=== PATIENT | female | born 1985 | race Caucasian/White ===

== ENCOUNTER 2018-03-26 10:52 | Emergency (ER) | payer OTHER ==
[2018-03-26 10:59] VITALS: BP 128/80
--- NOTE | 2018-03-26 11:55 | UC ---
Abdominal Pain Female HPI - HPI Summary HPI Summary: 4 DAYS OF WORSENING RIGHT-SIDED ABDOMINAL PAIN AND LOW BACK PAIN WITH ASSOCIATED NAUSEA. PATIENT DENIES ANY URINARY SYMPTOMS. NO FEVER. MAYBE A BIT WORSE AFTER EATING BUT NOT FOR SURE. STILL HAS APPENDIX AND GB. - History of Current Complaint Chief Complaint: UCAbdominalPain Stated Complaint: ABDOMINAL PAIN Time Seen by Provider: 03/26/18 11:44 Hx Obtained From: Patient Hx Last Menstrual Period: 03/03/18 Onset/Duration: Gradual Onset, Lasting Days, Still Present Timing: Constant Severity Initially: Moderate Severity Currently: Severe Pain Intensity: 10 Pain Scale Used: 0-10 Numeric Location: Other - RIGHT SIDED Radiates: Yes Radiates to: Flank Character: Sharp Aggravating Factor(s): Movement, Deep Breaths Alleviating Factor(s): Nothing Associated Signs and Symptoms: Positive: Back Pain, Nausea. Negative: Fever, Blood in Stool, Urinary Symptoms Allergies/Adverse Reactions: Allergies Allergy/AdvReac Type Severity Reaction Status Date / Time No Known Allergies Allergy Verified 03/26/18 10:59 PMH/Surg Hx/FS Hx/Imm Hx Previously Healthy: Yes - Surgical History Surgical History: Yes Surgery Procedure, Year, and Place: carpal tunnel - Family History Family History: MOM - KIDNEY STONES - Social History Alcohol Use: None Substance Use Type: None Smoking Status (MU): Light Every Day Tobacco Smoker Amount Used/How Often: 1-2 daily Have You Smoked in the Last Year: No When Did the Patient Quit Smoking/Using Tobacco: 1 YEAR AGO Review of Systems Constitutional: Negative Respiratory: Negative Cardiovascular: Negative Gastrointestinal: Abdominal Pain, Nausea Genitourinary: Negative All Other Systems Reviewed And Are Negative: Yes Physical Exam Triage Information Reviewed: Yes Appearance: Well-Nourished, Pain Distress - MODERATE - PT HOLDING RIGHT SIDE, GRIMACING AND TEARFUL Vital Signs: Initial Vital Signs Temp 98 F 03/26/18 10:56 Pulse 90 03/26/18 10:56 Resp 20 03/26/18 10:56 BP 128/80 03/26/18 10:56 Pulse Ox 100 03/26/18 10:56 Laboratory Tests 03/26/18 03/26/18 11:44 11:53 POC Urine Color Yellow POC Urine Clarity Clear POC Urine pH 6.5 POC Ur Specif [place] <= 1.005 L POC Urine Protein Negative POC Ur Glucose (UA) Negative POC Urine Ketones Negative POC Urine Blood Negative POC Urine Nitrite Negative POC Urine Bilirubin Negative POC Urine Urobilinogen 0.2 POC U Leukocyte Esteras Negative POC Ur Test Negative Vital Signs Reviewed: Yes Eyes: Positive: Conjunctiva Clear ENT: Positive: Hearing grossly normal Neck: Positive: Supple Respiratory Exam: Normal Cardiovascular Exam: Normal Abdomen Description: Positive: Soft, CVA Tenderness (R), Other: - TTP DIFFUSELY OVER RIGHT SIDE. NO REBOUND OR RIGIDITY. NEG PSOAS. NEG OBTURATOR. Negative: CVA Tenderness (L), Distended, Guarding Bowel Sounds: Positive: Present Musculoskeletal: Positive: No Edema Neurological: Positive: Alert Psychological: Positive: Age Appropriate Behavior Skin: Negative: rashes Diagnostics - Radiology CT ABD/PELVIS W/O CONTRAST Xray Interpretation: Positive (See Comments) - 1. No CT evidence of urolithiasis. 2. Abnormal CT appearance the gallbladder. 3. Small amount of free fluid in the cul-de-sac Radiology Interpretation Completed By: Radiologist Abd Pain Female Course/Dx - Course Course Of Treatment: CT SCAN SHOWS ABNORMAL GALLBLADDER. NO KIDNEY STONE. GALLBLADDER ULTRASOUND RECOMMENDED BY RADIOLOGIST HOWEVER UNABLE TO GET IN THE UC IN A TIMELY MANNER. GIVEN THAT A POSITIVE ULTRASOUND WOULD STILL INDICATE TRANSFER TO THE ED PATIENT WILL GO DIRECTLY TO THE ED ALREADY FOR FURTHER EVALUATION OF HER ABDOMINAL DISCOMFORT. PT OFFERED TRANSPORT TO THE ED BY AMBULANCE BUT DECLINES. ADVISED THAT BY NOT TRAVELING IN A MONITORED SETTING SHE COULD BE RISKING WORSENING OF HER CONDITION THAT COULD POSE A THREAT TO HER LIFE, HEALTH AND MEDICAL SAFETY. SHE VERBALIZES UNDERSTANDING AND CONTINUES TO DECLINE AMBULANCE TRANSFER. - Differential Dx/Diagnosis Provider Diagnoses: ACUTE CHOLECYSTITIS - Physician Notification/Consults Discussed Care of Patient With: Cb Griffin - TO [facility] ED BY PRIVATE CAR Time Discussed With Above Provider: 13:00 Instructed by Provider To: MD Will See In ED Discharge - Sign-Out/Discharge Documenting (check all that apply): Patient Departure - Discharge Plan Condition: Stable [facility] Patient Education Materials: Cholecystitis (ED) Referrals: No Primary Care Phys,NOPCP [Primary Care Provider] - Additional Instructions: CONCERN FOR GALLBLADDER DISEASE. GO DIRECTLY TO THE [facility] ED FROM HERE FOR FURTHER EVALUATION. YOU HAVE DECLINED TRANSFER TO THE ED BY AMBULANCE. BE ADVISED THAT BY NOT TRAVELING IN A MONITORED SETTING YOU COULD BE RISKING WORSENING OF YOUR CONDITION THAT COULD POSE A THREAT TO YOUR LIFE, HEALTH AND MEDICAL SAFETY. - Billing Disposition and Condition Condition: STABLE Disposition: Trans Higher Lvl of Care Fac
--- NOTE | 2018-03-26 12:27 | RAD ---
INDICATION: Right flank pain COMPARISON: None TECHNIQUE: Noncontrast axial source images were acquired from the level hemidiaphragms to the symphysis pubis as part of CT imaging for renal stone. Lung bases: The lung bases are clear. Liver: The liver is normal in size. Noncontrast imaging shows no evidence of a hepatic mass or ductal dilatation. Gallbladder: The gallbladder is distended. There is intrinsic radiodensity of the gallbladder with mild wall prominence and pericholecystic fluid. This suggests gallbladder inflammation. Suggest gallbladder sonography Spleen: The spleen is normal in size. The noncontrast CT appearance is normal. Pancreas: Noncontrast imaging shows no pancreatic mass or ductal dilitation. Adrenal glands: No masses are identified. Kidneys/Bladder: There is no evidence of nephrolithiasis or CT evidence of hydronephrosis. Noncontrast imaging shows no evidence of a renal mass. The bladder is unremarkable.. Adenopathy: There is no evidence of intraperitoneal or retroperitoneal adenopathy. Evaluation is limited without oral contrast. Fluid collections: There is a small amount of free fluid in the cul-de-sac. Vessels: The aorta and iliac vessels are normal in caliber. There are no significant atherosclerotic changes. The IVC appears normal Pelvic organs: The uterus and adnexa appear normal GI tract: Evaluation of the bowel is limited without oral contrast. The stomach, small bowel, and lower GI tract appear grossly normal. There are no obstructive findings. The appendix is visualized and appears normal. Soft tissues: No soft tissue abnormalities of the extraperitoneal abdomen or pelvis are identified. Osseous structures: There are no acute osseous findings. IMPRESSION: 1. No CT evidence of urolithiasis. 2. Abnormal CT appearance the gallbladder. Suggest gallbladder sonography. 3. Small amount of free fluid in the cul-de-sac
== END 2018-03-26 13:05 | disposition short-term general hospital (02) ==
LOC: UCEAST 10:52
DX: R10.9 Unspecified abdominal pain (principal); K80.20 Calculus of gallbladder without cholecystitis without obstruction; F17.210 Nicotine dependence, cigarettes, uncomplicated
CPT/HCPCS: 74176; 81003; 84702; 99212; G0463

== ENCOUNTER 2018-03-26 13:27 | Inpatient (IN) | payer OTHER ==
[2018-03-26] MEDS ORDERED: NS 0.9% 1000 ML* 1,000 ML IV ONE (14:04)
--- NOTE | 2018-03-26 14:04 | ED ---
Abdominal Pain/Female - HPI Summary HPI Summary: This is scribe Jaskaran Benoit documenting for attending Jerome Kenny MD. Patient is a 32 y/o F w/ c/o RUQ pain. Pain onset was four days ago and was initially located at the lower back. However, it is now described to be at the RUQ. Pain is not noted to radiate. [facility] told and was informed that she has an irritated gallbladder. This prompted the ED visit. Patient denies D/V and constipation but notes some nausea. Pain is rated 8/10 in the room. On triage, eating is noted to aggravate Sx and nothing is reported to alleviated Sx. PMHx is denied. PSHx of carpel tunnel surgery is reported. Patient smokes 4-5 cigarettes a day, drinks once a week, and denies drug use. FHx of kidney stones and seizures is stated. LNMP was first week of February. Allergies and home medications are reviewed. - History of Current Complaint Chief Complaint: EDAbdPain Stated Complaint: ABD PAIN Time Seen by Provider: 03/26/18 13:55 Hx Obtained From: Patient Hx Last Menstrual Period: 03/03/18 Onset/Duration: Lasting Days - four days ago Timing: Constant Severity Currently: Severe Pain Intensity: 8 Pain Scale Used: 0-10 Numeric - 8/10 Location: Discrete At: RUQ - initially at lower back Radiates: No Aggravating Factor(s): Food Alleviating Factor(s): Nothing Associated Signs and Symptoms: Positive: Nausea. Negative: Constipation, Vomiting, Diarrhea Allergies/Adverse Reactions: Allergies Allergy/AdvReac Type Severity Reaction Status Date / Time No Known Allergies Allergy Verified 03/26/18 14:01 PMH/Surg Hx/FS Hx/Imm Hx Endocrine/Hematology History: Denies: Hx Diabetes, Hx Thyroid Disease Cardiovascular History: Denies: Hx Hypertension, Other Cardiovascular Problems/Disorders Respiratory History: Denies: Hx Asthma, Hx Chronic Obstructive Pulmonary Disease (COPD), Other Respiratory Problems/Disorders GI History: Denies: Hx Ulcer, Other GI Disorders Musculoskeletal History: Denies: Other Musculoskeletal History Sensory History: Reports: Hx Contacts or Glasses - GLASSES Denies: Hx Hearing Aid Opthamlomology History: Reports: Hx Contacts or Glasses - GLASSES - Surgical History Surgery Procedure, Year, and Place: carpal tunnel Hx Anesthesia Reactions: No Infectious Disease History: No Infectious Disease History: Denies: Hx Clostridium Difficile, Hx Hepatitis, Hx Human Immunodeficiency Virus (HIV), Hx of Known/Suspected MRSA, Hx Shingles, Hx Tuberculosis, Hx Known/ Suspected VRE, Hx Known/Suspected VRSA, History Other Infectious Disease, Traveled Outside the [place] in Last 30 Days - Family History Known Family History: Positive: Renal Disease - MOM - KIDNEY STONES, Seizure Disorder - seizures - Social History Alcohol Use: None Substance Use Type: Reports: None Smoking Status (MU): Light Every Day Tobacco Smoker Amount Used/How Often: 1-2 daily Have You Smoked in the Last Year: No Review of Systems Negative: Fever - on vitals, temperature is measured to be 99 F Positive: Abdominal Pain - RUQ, Nausea, Other - NEGATIVE: constipation . Negative: Vomiting, Diarrhea All Other Systems Reviewed And Are Negative: Yes Physical Exam - Summary Physical Exam Summary: VITAL SIGNS: Reviewed. GENERAL: Patient is a well-developed and obese female who is lying comfortable in the stretcher. Patient is not in any acute respiratory distress. HEAD AND FACE: Normocephalic and atraumatic. EYES: PERRLA, EOMI x 2, No injected conjunctiva. EARS: Hearing grossly intact. Ear canals and tympanic membranes are WNL. MOUTH: Oropharynx within normal limits. NECK: Supple, trachea is midline, no adenopathy, no JVD. CHEST: Symmetric, no tenderness at palpation LUNGS: Clear to auscultation bilaterally. No wheezing or crackles. CVS: RRR, S1 and S2 present, no murmurs or gallops appreciated. ABDOMEN: Soft, RUQ tenderness, mild guarding. No signs of distention. Positive bowel sounds. No rebound no and no masses palpated. No abdominal bruit or pulsations. EXTREMITIES: FROM in all major joints, no edema, no cyanosis or clubbing. NEURO: Alert and oriented x 3. No acute neurological deficits. Speech is normal. SKIN: Dry and warm Triage Information Reviewed: Yes Vital Signs On Initial Exam: Initial Vitals Temp Pulse Resp BP Pulse Ox 99 F 69 18 123/78 100 03/26/18 13:48 03/26/18 13:48 03/26/18 13:48 03/26/18 13:48 03/26/18 13:48 Vital Signs Reviewed: Yes Diagnostics - Vital Signs Vital Signs Temp Pulse Resp BP Pulse Ox 07/27/18 13:48 99 F 69 18 123/78 100 - Laboratory Result Diagrams: 03/26/18 14:14 03/26/18 14:14 Lab Statement: Any lab studies that have been ordered have been reviewed, and results considered in the medical decision making process. - Ultrasound No standard instances Ultrasound Interpretation: Positive (See Comments) Ultrasound Interpretation Completed By: Radiologist - GALLBLADDER ULTRASOUND IMPRESSION: 2 CM CALCULUS OF THE NECK OF THE GALLBLADDER WITH MILD GALLBLADDER WALL THICKENING AND A POSITIVE SONOGRAPHIC CHILDRESS'S SIGN, CONCERNING FOR ACUTE CHOLECYSTITIS IN THE CORRECT CLINICAL SETTING. THIS REPORT WAS REVIEWED BY ED PHYSICIAN. Re-Evaluation - Re-Evaluation First Eval Re-Evaluation Time: 15:39 Comment: Informed surgical consult will come, who will make a decision on whether to admit patient. Abdominal Pain Fem Course/Dx - Course Course Of Treatment: This patient is a 32-year-old female who presents to the emergency room with a chief complaint of having a right upper quadrant pain. The patients be having pain since last Thursday. Mild nausea no vomiting no diarrhea or constipation. Last menstrual cycle was 2 weeks ago. Patient reports that she went to the urgent care where they performed an abdominopelvic CT which is shows no CT evidence of urolithiasis. Abnormal CT appearance of the gallbladder. Suggest gallbladder sonography. Small amount of free fluid in the cul-de-sac. Blood test results without any significant abnormality except for the CRP of 50.7. Right upper quadrant ultrasound impression: 2 cm calculus at the neck of the gallbladder with mild gallbladder wall thickening and a positive sonographic Lynndyl sign. Concerning for an acute cholecystitis in the correct clinical setting. In the ED course the patient was given ibuprofen the patient was given Zofran for nausea and morphine for the pain. Dr. Soto from surgery, came to assessed the patient and he thinks that the patient has an acute cholecystitis. He recommends admission to his services for further workup and management. Patient is hemodynamically stable and she is alert and oriented 3. - Diagnoses Differential Diagnosis: Positive: Constipation, Diverticulitis, Gall Bladder Disease, Irritable Bowel Syndrome, Ovarian Cyst, Renal Colic Provider Diagnoses: Acute cholecystitis - Provider Notifications Discussed Care Of Patient With: Valeriano Soto Time Discussed With Above Provider: 15:35 Instructed by Provider To: Other - Dr. Soto consulted at 1535, will come down to evaluate patient. 16:25 -- Dr. Soto came to the room and looked over the patient. After discussing with Dr. Kenny, he will admit patient to [facility] for surgery. Discharge - Sign-Out/Discharge Documenting (check all that apply): Patient Departure - admit - Discharge Plan Condition: Good Disposition: ADMITTED TO [facility]
[2018-03-26 14:31] LABS: ABS Basophils 0 10^3/ul (0-0.2); ABS Eosinophils 0.2 10^3/ul (0-0.6); ABS Lymphocytes 1.7 10^3/ul (1.0-4.8); ABS Monocytes 0.4 10^3/ul (0-0.8); ABS Neutrophils 6.3 10^3/ul (1.5-7.7); ABS Nucleated RBC 0 10^3/ul; Hematocrit 36 % (35-47); Hemoglobin 12.3 g/dl (12.0-16.0); Lymphocyte % 19.8 % (25-47); Mean Corpuscular HGB Conc 34 g/dl (31-36); Mean Corpuscular Hemoglobin 29 pg (27-31); Mean Corpuscular Volume 85 fL (80-97); Mean Platelet Volume 6.8 um3 (7.4-10.4); Nucleated Red Blood Cells % 0; Platelet Count 296 10^3/ul (150-450); Red Blood Count 4.29 10^6/ul (4.00-5.40); Red Cell Distribution Width 13 % (10.5-15); White Blood Count 8.6 10^3/ul (3.5-10.8)
[2018-03-26 14:51] LABS: EGFR Non-African American 122.1 (>60)
--- NOTE | 2018-03-26 15:11 | RAD ---
HISTORY: RUQ pain COMPARISONS: CT dated March 26, 2018 TECHNIQUE: Multiple transverse and longitudinal ultrasound images were obtained of the right upper quadrant of the abdomen using grayscale and color Doppler imaging. FINDINGS: LIVER: The liver is normal in shape, size, contour, and echogenicity. There are no focal parenchymal masses. There is normal hepatopedal flow of the portal vein on Doppler imaging. BILIARY TREE: There is no intrahepatic or extrahepatic biliary dilatation. The common duct measures 0.5 cm. GALLBLADDER: There is cholelithiasis including a 2 x 2 centimeter calculus in the neck of the gallbladder. There is mild gallbladder wall thickening. There is no pericholecystic fluid. There is a positive sonographic Mcgee sign PANCREAS: The head of the pancreas is unremarkable. The tail of the pancreas is not well visualized secondary to overlying bowel gas. RIGHT KIDNEY: The right kidney is normal in shape, size, contour, and echogenicity. There is no hydronephrosis or nephrolithiasis. The right kidney measures 10.5 x 3.9 x 3.7 cm. AORTA AND IVC: The aorta and IVC are unremarkable. FLUID: There are no pleural effusions. There is no free fluid within the hepatorenal recess. OTHER FINDINGS: None. IMPRESSION: 2 CM CALCULUS OF THE NECK OF THE GALLBLADDER WITH MILD GALLBLADDER WALL THICKENING AND A POSITIVE SONOGRAPHIC MCGEE'S SIGN, CONCERNING FOR ACUTE CHOLECYSTITIS IN THE CORRECT CLINICAL SETTING
[2018-03-26] MEDS ORDERED: Morphine INJ* 2 MG/ML 1 ML SYRINGE (TWO MG - NEW SYRINGE VERSION) IV ONE (16:29)
[2018-03-26] MEDS ORDERED: Piperacillin/Tazobac ADVAN(*) 3.375 GM in NS 0.9% 100 ML* 100 ML IVPB ONE ×2 (16:29→16:40)
[2018-03-26] MEDS ORDERED: Acetaminophen TAB* 325 MG PO PRN (16:40)
[2018-03-26] MEDS ORDERED: Zosyn per Pharmacy* NOTE FOLLOW UP SCH (17:00)
--- NOTE | 2018-03-26 19:50 | HP ---
HISTORY AND PHYSICAL ADMISSION: DATE OF ADMISSION: 03/26/18 CHIEF COMPLAINT: Right upper quadrant abdominal pain. HISTORY OF PRESENT ILLNESS: Ms. Rahel Cooper is a 32-year-old woman who on Thursday of this week had developed right upper quadrant abdominal discomfort. This progressively had worsened over the next 48 hours to include pain in to the right mid and lateral back area. She has been going to work at the [employer] today, was not able to perform her duties and initially went to the [facility] where she was noted to be afebrile. She underwent a CAT scan of the abdomen and pelvis without contrast. There was obvious concern of a kidney stone. This showed no evidence of urolithiasis. It did show that the gallbladder was distended with some suggestion of mild wall prominence, pericholecystic fluid, but no gallstones. Gallbladder ultrasound was recommended. No laboratory work was done. She was sent to the emergency room here at [facility]. Here, she was also noted to be afebrile. Laboratory workup included a normal white blood cell count without shift. Electrolytes, BUN, and creatinine were all within normal limits. LFTs and lipase were normal. She had a C-reactive protein of 50.78 and a test was negative. She underwent an ultrasound of her gallbladder. I did review these images. These show thickened gallbladder wall with an apparent gallstone at the neck of the gallbladder. There was no pericholecystic fluid. There was no intra or extrahepatic biliary dilation. Surgical consultation was obtained. PAST MEDICAL HISTORY: Obesity. PAST SURGICAL HISTORY: Carpal tunnel syndrome. MEDICATIONS: None. ALLERGIES: She has no known drug allergies. SOCIAL HISTORY: She is single, lives with a male partner. She works at the [id number]. She smokes 3 to 4 cigarettes per day. She drinks alcohol on a fairly rare social basis. REVIEW OF SYSTEMS: Cerebrovascular: No dizziness or visual disturbances. Cardiovascular: No chest pain, shortness of breath. Pulmonary: No wheezing or hemoptysis. : As per above. She has never had epigastric or right upper quadrant pain radiated to her back after meals. She has never been jaundiced. She has had no fevers, shakes, or chills. She has never been told that she has gallstones in the past. GUEST SERVICE REPRESENTATIVE: She has no history of pregnancies. PHYSICAL EXAMINATION GENERAL: She is an obese woman who appears to be somewhat uncomfortable, but is awake, alert, and very pleasant. VITAL SIGNS: Temperature 99, pulse 69, blood pressure 123/78. HEENT: Her sclerae are anicteric. Oral mucosa is slightly dry. LUNGS: Clear to auscultation with normal respiratory effort. HEART: Regular rate and rhythm without murmurs, rubs, or gallops. ABDOMEN: Her abdomen is obese, but soft. She had diminished bowel sounds throughout. There are no prior surgical incisions. I appreciate no obvious hernias. She has tenderness in the right upper quadrant with some voluntary guarding. There is no generalized tenderness or peritoneal irritation. PSYCHIATRIC: She is awake, alert, and oriented x3. She has normal judgement and insight. IMPRESSION AND RECOMMENDATIONS: 1. Acute calculous cholecystitis. Her symptoms started on Thursday, so she is 4 days into the process. She has normal white blood cell count. No fever. Her liver transaminases, bilirubin, lipase were all within normal limits. An ultrasound does confirm some thickening of the gallbladder wall with a stone in the neck of the gallbladder. I discussed these findings with her and her partner here in the emergency room. I believe that she will require a cholecystectomy. The more important question will be the timing. She is now 4 days into the inflammatory process and at this point, laparoscopic cholecystectomy can be somewhat difficult and result in a partial cholecystectomy or even an open procedure, which certainly would be nice to avoid in this young, healthy woman. We discussed treating with IV antibiotics and if this improves her symptoms, consider an interval cholecystectomy. At at any rate, I do believe that she needs to be admitted and started on IV antibiotics and IV fluids and that she will need adequate intravenous analgesia such as morphine and perhaps Percocet. 2. I will start her on IV Zosyn for coverage. 3. We will keep her n.p.o. after midnight. 4. White blood cell count would be checked in the morning. 5. I discussed my plan our initially starting with IV antibiotics and if she has improvement, we may be able to avoid cholecystectomy and plan an interval cholecystectomy after discharge. If her symptoms do not improve, her white blood count becomes elevated, she will require cholecystectomy here in the next several days. She understands and agrees with our plan. Orders will be written. [id number]/[facility] #: [id number] [facility]
[2018-03-26] MEDS: ZOSYN 3.375 GM Q8H per EXTENDED INFUSION IVPB SCH ×2 (20:53)
[2018-03-26] MEDS: Morphine INJ* 2 MG/ML 1 ML SYRINGE (TWO MG - NEW SYRINGE VERSION) IV PRN ×2 (20:56→23:11)
[2018-03-26] MEDS: Ondansetron INJ* 2 MG/ML VIAL IV PRN (23:08)
[2018-03-27] MEDS: NS 0.9% 1000 ML* 1,000 ML IV SCH ×3 (01:46→17:45)
[2018-03-27] MEDS: Morphine INJ* 2 MG/ML 1 ML SYRINGE (TWO MG - NEW SYRINGE VERSION) IV PRN ×3 (03:38→11:41)
[2018-03-27] MEDS: ZOSYN 3.375 GM Q8H per EXTENDED INFUSION IVPB SCH ×6 (04:58→20:51)
[2018-03-27 05:20] LABS: ABS Basophils 0 10^3/ul (0-0.2); ABS Eosinophils 0.1 10^3/ul (0-0.6); ABS Lymphocytes 1.6 10^3/ul (1.0-4.8); ABS Monocytes 0.4 10^3/ul (0-0.8); ABS Neutrophils 6.6 10^3/ul (1.5-7.7); ABS Nucleated RBC 0 10^3/ul; Hematocrit 33 % (35-47); Hemoglobin 11.1 g/dl (12.0-16.0); Lymphocyte % 18.2 % (25-47); Mean Corpuscular HGB Conc 34 g/dl (31-36); Mean Corpuscular Hemoglobin 29 pg (27-31); Mean Corpuscular Volume 85 fL (80-97); Mean Platelet Volume 6.8 um3 (7.4-10.4); Nucleated Red Blood Cells % 0; Platelet Count 262 10^3/ul (150-450); Red Blood Count 3.87 10^6/ul (4.00-5.40); Red Cell Distribution Width 13 % (10.5-15); White Blood Count 8.7 10^3/ul (3.5-10.8)
--- NOTE | 2018-03-27 11:04 | PN ---
Progress Note - Progress Note Date of Service: 03/27/18 SOAP: Subjective: She feels better this morning, still with RUQ abd pain Hungry and wants to eat Objective: Temp Pulse Resp BP Pulse Ox 98.3 F 73 16 132/88 100 03/27/18 07:18 03/27/18 07:18 03/27/18 09:32 03/27/18 07:18 03/27/18 07:18 PEX: Comfortable Lungs are clear Abd is soft and non-distended. Tender in the RUQ with some guarding, no peritoneal irritation. Bowel sounds are present Laboratory Results - last 24 hr 03/26/18 03/26/18 03/26/18 14:14 14:14 14:14 WBC 8.6 RBC 4.29 Hgb 12.3 Hct 36 MCV 85 MCH 29 MCHC 34 RDW 13 Plt Count 296 MPV 6.8 L Neut % (Auto) 72.8 Lymph % (Auto) 19.8 L Collin % (Auto) 5.1 Eos % (Auto) 2.0 Baso % (Auto) 0.3 Absolute Neuts (auto) 6.3 Absolute Lymphs (auto) 1.7 Absolute Monos (auto) 0.4 Absolute Eos (auto) 0.2 Absolute Basos (auto) 0 Absolute Nucleated RBC 0 Nucleated RBC % 0 Sodium 138 Potassium 3.8 Chloride 107 Carbon Dioxide 23 Anion Gap 8 BUN 6 Creatinine 0.58 Est GFR ( Amer) 147.7 Est GFR (Non-Af Amer) 122.1 BUN/Creatinine Ratio 10.3 Glucose 82 Lactic Acid 0.6 Calcium 9.1 Total Bilirubin 0.30 AST 14 ALT 13 Alkaline Phosphatase 59 C-Reactive Protein 50.78 H Total Protein 6.9 Albumin 3.8 Globulin 3.1 Albumin/Globulin Ratio 1.2 Lipase < 10 L Beta HCG, Quant < 0.60 03/27/18 04:59 WBC 8.7 RBC 3.87 L Hgb 11.1 L Hct 33 L MCV 85 MCH 29 MCHC 34 RDW 13 Plt Count 262 MPV 6.8 L Neut % (Auto) 76.2 Lymph % (Auto) 18.2 L Collin % (Auto) 4.3 Eos % (Auto) 1.0 Baso % (Auto) 0.3 Absolute Neuts (auto) 6.6 Absolute Lymphs (auto) 1.6 Absolute Monos (auto) 0.4 Absolute Eos (auto) 0.1 Absolute Basos (auto) 0 Absolute Nucleated RBC 0 Nucleated RBC % 0 Sodium Potassium Chloride Carbon Dioxide Anion Gap BUN Creatinine Est GFR ( Amer) Est GFR (Non-Af Amer) BUN/Creatinine Ratio Glucose Lactic Acid Calcium Total Bilirubin AST ALT Alkaline Phosphatase C-Reactive Protein Total Protein Albumin Globulin Albumin/Globulin Ratio Lipase Beta HCG, Quant Assessment: Acute calculous cholecystitis-delayed presentation Improved on IV abx Plan: Continue IV abx-if continues to improve, hopefully can avoid surgery at this point and plan interval cholecystectomy Clear liquids Increase activity If no improvement next 48 hours will plan OR or consider percutaneous drainage if available. All discussed with patient.
[2018-03-27] MEDS: oxyCODONE/Acetamin 5/325 MG* TAB PO PRN ×2 (16:43→20:50)
[2018-03-28] MEDS: oxyCODONE/Acetamin 5/325 MG* TAB PO PRN ×4 (00:57→20:55)
[2018-03-28] MEDS: NS 0.9% 1000 ML* 1,000 ML IV SCH ×2 (01:30→10:43)
[2018-03-28] MEDS: ZOSYN 3.375 GM Q8H per EXTENDED INFUSION IVPB SCH ×6 (05:24→20:55)
--- NOTE | 2018-03-28 08:28 | PN ---
Progress Note - Progress Note Date of Service: 03/28/18 Note: HD#3 acute cholecystitis Afeb, VS noted UO large Valarie po's, no N/V Pain decreased Abd obese soft still quite tender RUQ, with Mcgee's sign Impr: Acute cholecystitis Responding slowly to iv abx Continue at present, recheck labs in AM
[2018-03-28] MEDS: Ondansetron INJ* 2 MG/ML VIAL IV PRN (12:12)
[2018-03-28] MEDS: Morphine INJ* 2 MG/ML 1 ML SYRINGE (TWO MG - NEW SYRINGE VERSION) IV PRN ×2 (12:13→16:29)
[2018-03-29] MEDS: oxyCODONE/Acetamin 5/325 MG* TAB PO PRN ×4 (01:22→23:36)
[2018-03-29] MEDS: NS 0.9% 1000 ML* 1,000 ML IV SCH (03:30)
[2018-03-29 05:29] LABS: ABS Basophils 0 10^3/ul (0-0.2); ABS Eosinophils 0.2 10^3/ul (0-0.6); ABS Lymphocytes 1.7 10^3/ul (1.0-4.8); ABS Monocytes 0.4 10^3/ul (0-0.8); ABS Neutrophils 4.6 10^3/ul (1.5-7.7); ABS Nucleated RBC 0 10^3/ul; Eosinophil % 2.6 % (0-6); Hematocrit 29 % (35-47); Lymphocyte % 24.6 % (25-47); Mean Corpuscular HGB Conc 34 g/dl (31-36); Mean Corpuscular Hemoglobin 29 pg (27-31); Mean Corpuscular Volume 84 fL (80-97); Mean Platelet Volume 6.8 um3 (7.4-10.4); Nucleated Red Blood Cells % 0; Platelet Count 239 10^3/ul (150-450); Red Cell Distribution Width 13 % (10.5-15); White Blood Count 6.9 10^3/ul (3.5-10.8)
[2018-03-29] MEDS: ZOSYN 3.375 GM Q8H per EXTENDED INFUSION IVPB SCH ×6 (05:29→21:03)
[2018-03-29 05:53] LABS: EGFR Non-African American 138.5 (>60)
--- NOTE | 2018-03-29 13:24 | PN ---
Progress Note - Progress Note Date of Service: 03/29/18 SOAP: Subjective: Patient initially seen at 0730 this morning She feels better-less pain and is getting around much better She has a good appetite, no back pain and no N/V Objective: Temp Pulse Resp BP Pulse Ox 98.8 F 63 18 108/54 98 03/29/18 11:15 03/29/18 11:15 03/29/18 11:15 03/29/18 11:15 03/29/18 11:15 Intake & Output 03/27/18 03/28/18 03/29/18 03/30/18 06:59 06:59 06:59 06:59 Intake Total 2440 4021 4887 480 Output Total 1700 2700 4175 600 Balance 740 1321 712 -120 Weight 195 lb Intake: IV Fluids 1980 [id number] ABX - ZOSYN 101 NS (0.9%) 980 2928 2021 IVPB 100 227 296 ABX - ZOSYN 100 227 296 Oral 749 261 9330 480 Output: Urine 1700 2700 4175 600 Other: # Voids 1 PEX: Comfortable Lungs are clear Abd is soft and non-distended. Bowel sounds are present. She has some very mild tenderness in the right upper quadrant without guarding or rebound. No mass Ext without edema Laboratory Last Values WBC 6.9 10^3/ul (3.5-10.8) 03/29/18 05:08 RBC 3.50 10^6/ul (4.00-5.40) L 03/29/18 05:08 Hgb 10.0 g/dl (12.0-16.0) L 03/29/18 05:08 Hct 29 % (35-47) L 03/29/18 05:08 MCV 84 fL (80-97) 03/29/18 05:08 MCH 29 pg (27-31) 03/29/18 05:08 MCHC 34 g/dl (31-36) 03/29/18 05:08 RDW 13 % (10.5-15) 03/29/18 05:08 Plt Count 239 10^3/ul (150-450) 03/29/18 05:08 MPV 6.8 um3 (7.4-10.4) L 03/29/18 05:08 Neut % (Auto) 66.6 % (38-83) 03/29/18 05:08 Lymph % (Auto) 24.6 % (25-47) L 03/29/18 05:08 [place] % (Auto) 5.7 % (0-7) 03/29/18 05:08 Eos % (Auto) 2.6 % (0-6) 03/29/18 05:08 Baso % (Auto) 0.5 % (0-2) 03/29/18 05:08 Absolute Neuts (auto) 4.6 10^3/ul (1.5-7.7) 03/29/18 05:08 Absolute Lymphs (auto) 1.7 10^3/ul (1.0-4.8) 03/29/18 05:08 Absolute Monos (auto) 0.4 10^3/ul (0-0.8) 03/29/18 05:08 Absolute Eos (auto) 0.2 10^3/ul (0-0.6) 03/29/18 05:08 Absolute Basos (auto) 0 10^3/ul (0-0.2) 03/29/18 05:08 Absolute Nucleated RBC 0 10^3/ul 03/29/18 05:08 Nucleated RBC % 0 03/29/18 05:08 Sodium 137 mmol/L (135-145) 03/29/18 05:08 Potassium 3.5 mmol/L (3.5-5.0) 03/29/18 05:08 Chloride 108 mmol/L (101-111) 03/29/18 05:08 Carbon Dioxide 24 mmol/L (22-32) 03/29/18 05:08 Anion Gap 5 mmol/L (2-11) 03/29/18 05:08 BUN 3 mg/dL (6-24) L 03/29/18 05:08 Creatinine 0.52 mg/dL (0.51-0.95) 03/29/18 05:08 Est GFR ( Amer) 167.5 (>60) 03/29/18 05:08 Est GFR (Non-Af Amer) 138.5 (>60) 03/29/18 05:08 BUN/Creatinine Ratio 5.8 (8-20) L 03/29/18 05:08 Glucose 85 mg/dL (70-100) 03/29/18 05:08 Lactic Acid 0.6 mmol/L (0.5-2.0) 03/26/18 14:14 Calcium 8.5 mg/dL (8.6-10.3) L 03/29/18 05:08 Total Bilirubin 0.50 mg/dL (0.2-1.0) 03/29/18 05:08 AST 14 U/L (13-39) 03/29/18 05:08 ALT 14 U/L (7-52) 03/29/18 05:08 Alkaline Phosphatase 53 U/L (34-104) 03/29/18 05:08 C-Reactive Protein 50.78 mg/L (<8.01) H 03/26/18 14:14 Total Protein 5.9 g/dL (6.4-8.9) L 03/29/18 05:08 Albumin 3.1 g/dL (3.2-5.2) L 03/29/18 05:08 Globulin 2.8 g/dL (2-4) 03/29/18 05:08 Albumin/Globulin Ratio 1.1 (1-3) 03/29/18 05:08 Lipase < 10 U/L (11.0-82.0) L 03/26/18 14:14 Beta HCG, Quant < 0.60 mIU/mL 03/26/18 14:14 Assessment: Acute calculous cholecystitis-delayed presentation Improving on IV abx Normal WBC, LFT's Plan: Continue IV zosyn Advance diet If tolerates po and continues to improve, d/c home tomorrow and plan interval cholecystectomy 4-6 weeks. All discussed with patient.
[2018-03-29] MEDS: Morphine INJ* 2 MG/ML 1 ML SYRINGE (TWO MG - NEW SYRINGE VERSION) IV PRN (17:06)
[2018-03-30] MEDS: ZOSYN 3.375 GM Q8H per EXTENDED INFUSION IVPB SCH ×2 (05:14)
[2018-03-30 07:29] VITALS: BP 128/74
--- NOTE | 2018-03-30 09:40 | PN ---
Progress Note - Progress Note Date of Service: 03/30/18 SOAP: Subjective: She continues to feel better-minimal RUQ pain today She is tolerating po and ambulating in the halls Objective: Temp Pulse Resp BP Pulse Ox 98.4 F 67 18 128/74 98 03/30/18 07:29 03/30/18 07:29 03/30/18 07:29 03/30/18 07:29 03/30/18 07:29 PEX: Comfortable Lungs are clear Abd is soft and non-distended; bowel sounds are present. Mild tenderness in the RUQ, improved from yesterday-no peritoneal irritation. Assessment: Acute calculous cholecystitis--delayed presentation. Improving with non- operative management with IV abx Plan: D/C Home today !0 days oral Augmentin Low fat diet Return to work Thursday Office follow up next week-plan interval cholecystectomy as outpatient. Instructions given-to call if symptoms return.
== END 2018-03-30 11:06 | disposition home or self-care (01) | DRG 446 ==
LOC: ED 13:27 → SSU 16:38 → OBSVTOIN 03-27 15:00
PROVIDERS: ADMIT Surgery; ATTEND Surgery
DX: K80.00 Calculus of gallbladder with acute cholecystitis without obstruction (principal); E66.9 Obesity, unspecified; F17.210 Nicotine dependence, cigarettes, uncomplicated; Z72.89 Other problems related to lifestyle; Z84.1 Family history of disorders of kidney and ureter; Z68.38 Body mass index [BMI] 38.0-38.9, adult; Z82.0 Family history of epilepsy and other diseases of the nervous system
CPT/HCPCS: 36415; 74176; 76705; 80053; 81003; 83605; 83690; 84702; 85025; 86140; 99212; 99283; A9270-GY; G0378; G0463; J2270; J2405; J2543

== ENCOUNTER → 2018-04-26 07:46 | Day surgery (SDC) | payer OTHER ==
[~2018-04-26 07:46] MED LIST: Acetaminophen TAB* 325 MG PO PRN; Atracurium* 10 MG/ML 10 ML VIAL ONE; Buffered Lidocaine 0.9% SYRIN* 5 ML/SYR SYRINGE INTRADERM ONE; Bupivacaine 0.25% W/EPI* 10 ML SDV ONE; Dexamethasone IV* 4 MG/ML 1 ML (4 MG) IV SLOW PU ONE; Dexamethasone IV* 4 MG/ML 1 ML (4 MG) ONE; DiMENhydriNATE IV* 50 MG/ML VIAL IV PUSH PRN; Famotidine IV* 10 MG/ML 2 ML (20 mg) IV ONE; Famotidine IV* 10 MG/ML 2 ML (20 mg) ONE; HYDROcodone/ACETAMIN 5-325 MG* 1 TAB ONE; HYDROcodone/ACETAMIN 5-325 MG* 1 TAB PO PRN; Ketorolac INJ* 30 MG/ML 1 ML VIAL ONE; Lidocaine 2% PF * 5 ML VIAL ONE; Metoclopramide IV* 5 MG/ML 2 ML VIAL ONE; Midazolam* 1 MG/ML 2 ML VIAL (2 MG) ONE; Morphine INJ* 2 MG/ML 1 ML SYRINGE (TWO MG - NEW SYRINGE VERSION) IV PRN; Naloxone* 0.4 MG/ML 1 ML VIAL IV PRN; Ondansetron INJ* 2 MG/ML VIAL IV PRN; Ondansetron INJ* 2 MG/ML VIAL ONE; PROCHLORPERAZINE INJ 5 MG/ML 2 ML VIAL IV PRN; Propofol* 10 MG/ML 20 ML BTL IV PUSH ONE; Scopolamine 1.5 mg* PATCH ONE; Scopolamine PATCH Remove* 1 NOTE MISC PATCH OFF ONE; ceFAZolin 2 GM PREMIX (*) 2 GM/50 ML BAG IVPB ONE; fentaNYL* 50 MCG/ML 2 ML VIAL (100 MCG VIAL) IV PRN; fentaNYL* 50 MCG/ML 2 ML VIAL (100 MCG VIAL) ONE
--- NOTE | 2018-04-26 19:53 | BRIEFOPN ---
Brief Operative Note - Surgery Procedures: OPERATIVE REPORT PRE-OP: Cholethiasis, RUQ abd pain POST-OP: Same, Chronic calculous cholecystitis PROCEDURE: Laparoscopic cholecystectomy SURGEON: MD Brittany ANESTHESIA:Local with General, Dr. Og ASST: DEB Pride IVF:1 liter of crystalloid EBL: min SPECIMEN: Gallbladder DRAIN: none WOUND CLASS:3 COMPLICATIONS: none TO PACU
[2018-04-26 20:46] VITALS: BP 109/47
--- NOTE | 2018-04-27 05:28 | OP ---
DATE OF OPERATION: 04/26/18 - [facility] DATE OF : 89 SURGEON: Valeriano Soto MD BUSINESS CASE ANALYST: DEB Allen ANESTHESIOLOGIST: Dr. Og. ANESTHESIA: General with local. PRE-OP DIAGNOSIS: Cholelithiasis and right upper quadrant abdominal pain. POST-OP DIAGNOSIS: 1. Cholelithiasis and right upper quadrant abdominal pain. 2. Hydrops of the gallbladder. 3. Chronic calculus cholecystitis. OPERATIVE PROCEDURE: Laparoscopic cholecystectomy. ESTIMATED BLOOD LOSS: Minimal. IV FLUIDS: 100 of crystalloids. SPECIMENS: Gallbladder with retained gallstone. DRAINS: None. WOUND CLASSIFICATION: Three due to some leakage of bile from the gallbladder. FINDINGS: The patient had a markedly distended gallbladder with some chronic inflammation from the omentum and adherence to the liver. There was a large stone in the neck of the gallbladder leading to apparent hydrops of the gallbladder with chronic inflammation in infundibular area described below. DESCRIPTION OF PROCEDURE: Written informed consent was obtained, the abdomen was marked with indelible ink and preoperative antibiotics were administered. The patient was taken to the operating room, placed in the supine position. Sequential compression device and warming blanket were applied. General anesthesia was administered and the abdomen was prepped and draped in usual sterile fashion. Time-out verification was completed. Initially a small transverse incision was made just below the umbilicus at the midline. The peritoneal cavity was entered under direct vision. The abdomen was insufflated to 15 mmHg and under direct vision a 11 mm epigastric port was placed and two 5 mm ports were placed in the right side of the abdominal wall. It was obvious that the gallbladder was markedly distended. The liver appeared to be normal. There was no evidence of acute inflammation, but there was some omental adhesions to the gallbladder, these were taken down bluntly. It was necessary to use an 18-gauge spinal needle to drain the gallbladder of approximately 75 cc of sprinkler helper, thinner blue bilious fluid consistent with hydrops of the gallbladder. Once the gallbladder was decompressed, we were able to elevate the gallbladder up over the liver bed. It was evident that there was rather a large stone in the infundibulum of the gallbladder which made grasping the gallbladder difficult; however, with positioning of the graspers, we were able to take down the thickened chronically inflamed peritoneum along the medial and lateral aspect of the gallbladder. We identified the cystic duct which appeared to be of normal and expected caliber. Cystic artery was also identified as it entered the gallbladder. With careful dissection through the chronically inflamed tissue, I was able to take a significant part of the inferior part of the gallbladder off the liver bed using the critical view technique to assure myself of these 2 structures. The cystic duct was then doubly clipped and divided. The cystic artery was likewise clipped and divided. With some difficulty due to the adherence of the gallbladder posterior to the liver bed, the gallbladder was removed using combination of cautery and blunt dissection and some bleeding along the liver edge, liver bed was controlled with electrocautery. The gallbladder was then removed completely and placed in EndoCatch bag and brought out through the umbilical incision. The right upper quadrant and liver bed were irrigated until clear. Hemostasis was assured. There was no evidence of bile leak. All ports removed under direction vision of the camera. The umbilical fascia was closed with interrupted 0 Vicryl suture. The skin at all 4 incisions were approximated with subcuticular 4-0 Vicryl suture. Sterile strips were applied. The patient tolerated the procedure well and was taken to recovery room in stable condition. [id number]/[facility] #: [id number] DARSHAN
== END | disposition home or self-care (01) ==
LOC: OR 07:46
PROVIDERS: ATTEND Surgery
DX: K80.12 Calculus of gallbladder with acute and chronic cholecystitis without obstruction (principal); Z87.891 Personal history of nicotine dependence; E66.01 Morbid (severe) obesity due to excess calories; K21.9 Gastro-esophageal reflux disease without esophagitis
CPT/HCPCS: 81025; 88304; A9270-GY; J0690; J1100; J1885; J2250; J2405; J2704; J2765; J3010